=== PATIENT | male | born 1975 | race American Indian/Alaskan Native ===

== ENCOUNTER 2016-08-20 13:48 | Day surgery (SDC) | payer OTHER ==
[2016-08-20] MEDS ORDERED: NACL 0.9% 1000 ML 1,000 ML IV SCH (15:00)
--- NOTE | 2016-08-20 15:55 | Anesthesia Consultation ---
Anesthesia Consult and Med Hx Date of service: 08/20/16 - Airway Anesthetic Teeth Evaluation: Good ROM Head & Neck: Adequate Mental/Hyoid Distance: Adequate Mallampati Class: Class I Intubation Access Assessment: Good - Pulmonary Exam CTA: Yes - Cardiac Exam Cardiac Exam: RRR - Pre-Operative Health Status ASA Pre-Surgery Classification: ASA3 Proposed Anesthetic Plan: MAC - Pulmonary Hx Asthma: Yes Hx Sleep Apnea: Yes - Cardiovascular System Hx Hypertension: Yes - Gastrointestinal Hx Gastroesophageal Reflux Disease: Yes
--- NOTE | 2016-08-20 15:55 | Anesthesia Day of Surgery ---
Anesthesia Day of Surgery - Day of Surgery Patient Examined: Yes Patient H&P Reviewed: Yes Patient is NPO: Yes
[2016-08-20] MEDS ORDERED: DIPRIVAN 10 MG/ML IV ONE ×3 (16:52→16:53)
[2016-08-20] MEDS ORDERED: WATER FOR IRRIG STERILE IR ONE (17:30)
--- NOTE | 2016-08-20 17:42 | Operative Report ---
Operative Report Operative Report: Date: 08/20/2016 Operative Report: Date of procedure: 06/21/2016 Procedure: Esophagogastroduodenoscopy with esophageal dilation, also multiple mucosal biopsies. Attending physician: Jose Gonzales MD Sports Attorney: Jose Gonzales MD Indication: Patient is a 41-year-old male who presented with a history of heartburn gerd and dysphagia. An upper endoscopy is done to evaluate patient, so that treatment may be directed based on the findings. Consent: Informed consent was obtained after advising the patient and family regarding nature of this procedure, its indications, potential benefits as well as possible complications including but not limited to bleeding perforation and adverse reaction to medication, infection as well as other cardiopulmonary complications. An informed written and verbal consent was then obtained after due opportunity was provided for questions and answers. Monitoring: Patient was monitored continuously with pulse oximetry and electrocardiographic recordings as well as blood pressure recordings. Vital signs remained stable throughout this procedure with no untoward events. Preoperative assessment: Patient was assessed immediately prior to this procedure for capacity to tolerate monitored anesthesia care and moderate sedation as well as general anesthesia. Patient's ASA classification is 2, Mallampati class is 2, Hyomental distance is 3. Instrument: [employer] video endoscope Savory Dilators 42 FR and 45 FR Dilators Medications: Propofol given intravenously in divided doses. For details please refer to anesthesia records. Description of procedure: Patient was placed in the left lateral decubitus position after achieving sedation, the endoscope was introduced into the esophagus under direct vision. It was then advanced beyond the esophagus into the stomach and then beyond the stomach into the duodenum and to the second portion of the duodenum. It was subsequently withdrawn with careful inspection of all mucosal surfaces with the following findings. A guidewire was introduced through the endoscope and positioned. Subsequently, the endoscope was removed with the guidewire in place. Serial esophageal dilation was then performed. Patient tolerated procedure well with no untoward events. Procedure was then successfully completed. The following findings were noted. Findings: Esophagus was relatively tortuous with distal tapering. There was no obvious stricture seen. Because of complaints of dysphagia, esophageal dilation was then performed. 2 savory dilators were sequentially passed over a guidewire. A 42 [place] dilator and a 45 [place] dilator with a used. There was erythema in the stomach that was diffuse with areas of erosions seen in the gastric antrum. Biopsies of the antrum were obtained for histopathology. The duodenum was normal to second portion. Impression: tortuous esophagus status post dilation. Gastric antral erythema status post biopsies. Plan: Follow pathology report. Direct additional treatment based on the pathology report and patients clinical response to dilation.
--- NOTE | 2016-08-20 17:57 | Discharge Summary ---
Short Stay Discharge Plan Activity: advance as tolerated Weight Bearing Status: Weight Bear as Tolerated Diet: regular Additional Instructions: FOLLOW UP WITH DR CORRIGAN IN 2 WEEKS. NO RESTRICTIONS Follow up with: ROSSANA GODDARD DO [Other] - 7 Days Forms: Outpatient Surgery DC Inst.
[2016-08-20 17:59] VITALS: BP 118/83
--- NOTE | 2016-08-20 18:22 | Post Anesthesia Evaluation ---
- Post Anesthesia Evaluation Patient Participated: Yes Airway Patent: Yes Stable Respiratory Function: Yes Nausea/Vomiting: No Temp > 96.8F: Yes Pain Manageable: Yes Adequeate Hydration: Yes Anesthesia Complications: No
== END 2016-08-20 13:49 | disposition home or self-care (01) ==
LOC: GIO 13:48
PROVIDERS: ATTEND Internal Medicine Gastroenterology
DX: K21.9 Gastro-esophageal reflux disease without esophagitis (principal); K22.8 Other specified diseases of esophagus; J45.909 Unspecified asthma, uncomplicated; I10 Essential (primary) hypertension; F41.9 Anxiety disorder, unspecified; F32.9 Major depressive disorder, single episode, unspecified; M19.90 Unspecified osteoarthritis, unspecified site; F43.10 Post-traumatic stress disorder, unspecified; Z79.899 Other long term (current) drug therapy; Z88.5 Allergy status to narcotic agent; Z87.891 Personal history of nicotine dependence; Z82.49 Family history of ischemic heart disease and other diseases of the circulatory system
CPT/HCPCS: 43239; 43248; 88305; 88342; J2704; J7030

== ENCOUNTER 2016-10-25 13:18 | Day surgery (SDC) | payer OTHER ==
[2016-10-25] MEDS ORDERED: NACL 0.9% 1000 ML 1,000 ML IV SCH (14:00)
[2016-10-25] MEDS ORDERED: DIPRIVAN 10 MG/ML IV ONE ×2 (14:42)
--- NOTE | 2016-10-25 15:04 | Anesthesia Day of Surgery ---
Anesthesia Day of Surgery - Day of Surgery Patient Examined: Yes Patient H&P Reviewed: Yes Patient is NPO: Yes
--- NOTE | 2016-10-25 15:04 | Anesthesia Consultation ---
Anesthesia Consult and Med Hx Date of service: 10/25/16 - Airway Anesthetic Teeth Evaluation: Good ROM Head & Neck: Adequate Mental/Hyoid Distance: Adequate Mallampati Class: Class I Intubation Access Assessment: Good - Pulmonary Exam CTA: Yes - Cardiac Exam Cardiac Exam: RRR - Pre-Operative Health Status ASA Pre-Surgery Classification: ASA3 Proposed Anesthetic Plan: MAC - Pulmonary Hx Asthma: Yes Hx Sleep Apnea: Yes - Cardiovascular System Hx Hypertension: Yes - Gastrointestinal Hx Gastroesophageal Reflux Disease: Yes
[2016-10-25 15:30] VITALS: BP 139/89
--- NOTE | 2016-10-31 07:37 | Operative Report ---
Operative Report Operative Report: Date of procedure: 10/25/2016 Procedure: Esophagogastroduodenoscopy with esophageal dilation. Attending physician: Jose Gonzales MD [employer]: Jose Gonzales MD Indication: Patient is a 41-year-old male who presented with a history of heartburn and indigestion, and also dysphagia. An upper endoscopy is done to evaluate patient so that treatment may be directed based on the findings. Consent: Informed consent was obtained after advising the patient and family regarding nature of this procedure, its indications, potential benefits as well as possible complications including but not limited to bleeding perforation and adverse reaction to medication, infection as well as other cardiopulmonary complications. An informed written and verbal consent was then obtained after due opportunity was provided for questions and answers. Monitoring: Patient was monitored continuously with pulse oximetry and electrocardiographic recordings as well as blood pressure recordings. Vital signs remained stable throughout this procedure with no untoward events. Preoperative assessment: Patient was assessed immediately prior to this procedure for capacity to tolerate monitored anesthesia care and moderate sedation as well as general anesthesia. Patient's ASA classification is 2, Mallampati class is 2, Hyomental distance is 3. Instrument: [employer] video endoscope, savory dilators. Medications: Propofol given intravenously in divided doses. For details please refer to anesthesia records. Description of procedure: Patient was placed in the left lateral decubitus position after achieving sedation, the endoscope was introduced into the esophagus under direct vision. It was then advanced beyond the esophagus into the stomach and then beyond the stomach into the duodenum and to the second portion of the duodenum. It was subsequently withdrawn with careful inspection of all mucosal surfaces with the following findings. Findings: Patient had tapering of of the distal esophagus with early stricture formation. A savory guidewire was introduced, subsequently, sequential dilation was performed using the 42 [place] and 45 [place] and 48 [place] dilators. There was mild erosive esophagitis involving the distal esophagus. There was some erythema in the gastric antrum. The duodenum was normal to second portion. Impression: Tapering of the distal esophagus with early stricture formation status post esophageal dilation. Gastric antral erythema. Plan: Observe patient clinically for continued improvement. Continue proton pump inhibitors. Additional steps were taken in outpatient follow-up.
== END 2016-10-25 13:19 | disposition home or self-care (01) ==
LOC: GIO 13:18
PROVIDERS: ATTEND Internal Medicine Gastroenterology
DX: K22.2 Esophageal obstruction (principal); K31.89 Other diseases of stomach and duodenum; K22.8 Other specified diseases of esophagus; K21.0 Gastro-esophageal reflux disease with esophagitis; J45.909 Unspecified asthma, uncomplicated; I10 Essential (primary) hypertension; G47.33 Obstructive sleep apnea (adult) (pediatric); F41.9 Anxiety disorder, unspecified; M19.90 Unspecified osteoarthritis, unspecified site; F32.9 Major depressive disorder, single episode, unspecified; F43.10 Post-traumatic stress disorder, unspecified; Z88.5 Allergy status to narcotic agent; Z98.890 Other specified postprocedural states; Z79.899 Other long term (current) drug therapy; Z87.891 Personal history of nicotine dependence; Z82.49 Family history of ischemic heart disease and other diseases of the circulatory system
CPT/HCPCS: 43248; J2704; J7030

== ENCOUNTER 2017-06-16 21:26 | Emergency (ER) | payer SELFPAY | END 2017-06-16 21:45 | disposition left against medical advice (07) | LOC: ED 21:26 | DX: R10.9 Unspecified abdominal pain (principal); Z53.21 Procedure and treatment not carried out due to patient leaving prior to being seen by health care provider ==